=== PATIENT | female | born 1995 | race Caucasian/White ===

== ENCOUNTER 2019-01-09 09:21 | Emergency (ER) | payer OTHER ==
[~2019-01-09] VITALS: Ht 172.7 cm; Wt 68.9 kg
--- NOTE | 2019-01-09 09:31 | NUR ---
PT TO BED 1 WITH STEADY GAIT
[2019-01-09 09:34] VITALS: BP 126/69
--- NOTE | 2019-01-09 09:49 | NUR ---
PT IS ALERT AND ORIENTED X 4 AND PRESENTS TO THE ED WITH C/O HEADACHE X 2 DAYS AND WAS REFEERED FROM URGENT CARE FOR FURTHER EVALUATION OF HGB 5.9. PT DESCRIBES PAIN FOM HEADACHE PRESSURE AND RATES IT AT 7/10 AT THIS TIME. PT STATES THAT SHE HAS HAD N/V X 1 DAY. BOWEL SOUNDS ACTIVE IN ALL 4 QUADRANTS, PT STATES LAST BOWEL MOVEMENT WAS 01/09/19. PT DENIES CP OR SOB. PT POSITIONED FOR COMFORT. ER MD TO SEE PT. MIGDALIA PMH: LUPUS. RX: PREDNISONE, PLAQUENIL
[2019-01-09 10:11] LABS: HEMATOCRIT 21.2 % (36-48); LYMPHOCYTES # (AUTO) 0.5 K/uL (2.5-16.5); MONOCYTES # (AUTO) 0.4 K/uL (0.8-1.0)
[2019-01-09 10:17] LABS: BASOPHILS % (AUTO) 0.2 % (0.0-2.0); LYMPHOCYTES % (AUTO) 11.1 % (20.5-51.1); MEAN CORPUSCULAR HEMOGLOBIN 25 pg (27-31); MEAN CORPUSCULAR HGB CONC 32 g/dL (33-37); MEAN CORPUSCULAR VOLUME 78.8 fL (80-94); MONOCYTES % (AUTO) 7.8 % (1.7-9.3); NEUTROPHILS # (AUTO) 3.9 K/uL (1.8-7.7); NEUTROPHILS % (AUTO) 80.9 % (42.2-75.2); PLATELET COUNT (AUTO) 537 K/uL (140-450); RED BLOOD CELL COUNT(AUTO) 2.69 MIL/uL (4.20-5.40); RED CELL DISTRIBUTION WIDTH 17.4 % (11.6-13.7); WHITE BLOOD COUNT (AUTO) 4.9 K/uL (4.8-10.8)
[2019-01-09 10:19] LABS: ANION GAP 13.4 (8-16); CARBON DIOXIDE 25.8 mmol/L (21-32); CREATININE 0.5 mg/dL (0.6-1.3); HEMOGLOBIN 6.7 g/dL (12.0-16.0); POTASSIUM 4.2 mmol/L (3.5-5.1)
[2019-01-09 10:26] LABS: ALBUMIN 3.8 g/dL (3.4-5.0); TOTAL BILIRUBIN 0.3 mg/dL (0.0-1.0)
--- NOTE | 2019-01-09 10:27 | NUR ---
PT HEMOGLOBIN WAS 6.7. EXPAINED TO PT ABOUT BLOOD TRANSFUSION AND BENEFITS FROM A BLOOD TRANSFUSION. PT STATES "I DONT WANT A BLOOD TRANSFUSION, MY MOM IS REALLY SCIENTOLOGY AND I DONT WANT TO MAKE HER UPSET. LAST TIME IT WAS LOWER AND THEY JUST GAVE ME MEDICINE. I DONT WANT A TRANSFUSION RIGHT NOW". DR LOO INFORMED OF PT WISHES. THALIA ENGLISH TO SEE PT.
--- NOTE | 2019-01-09 10:45 | NUR ---
Patient being evaluated by ER MD LOO at bedside.
[2019-01-09] MEDS ORDERED: ONDANSETRON 4 MG ODT PO ONE (11:00)
--- NOTE | 2019-01-09 11:13 | NUR ---
Patient discharged with v/s stable. Written and verbal after care instructions given and explained. Patient alert, oriented and verbalized understanding of instructions. Ambulatory with steady gait. All questions addressed prior to discharge. ID band removed. Patient advised to follow up with PMD. Rx of ZOFRAN, IRON, XANAX, AND TRAMADOL given. Patient educated on indication of medication including possible reaction and side effects. Opportunity to ask questions provided and answered.
[2019-01-09 11:15] VITALS: BP 126/69
== END 2019-01-09 11:13 | disposition home or self-care (01) ==
LOC: MED 09:21
DX: D64.9 Anemia, unspecified (principal); G47.00 Insomnia, unspecified; M32.9 Systemic lupus erythematosus, unspecified; Z86.79 Personal history of other diseases of the circulatory system
CPT/HCPCS: 36415; 80053; 85025; 99283; Q0162

== ENCOUNTER 2021-08-09 20:48 | Emergency (ER) | payer OTHER ==
[~2021-08-09] VITALS: Ht 172.7 cm; Wt 69.9 kg
[2021-08-09 21:07] VITALS: BP 129/85
[2021-08-09] MEDS ORDERED: NACL 0.9% 1,000 ML IV ONE (22:10)
[2021-08-09 22:19] LABS: BASOPHILS % (AUTO) 0.9 % (0.0-2.0); EOSINOPHILS % (AUTO) 0.7 % (0.0-4.0); HEMATOCRIT 34.1 % (36-48); HEMOGLOBIN 11.4 g/dL (12.0-16.0); LYMPHOCYTES # (AUTO) 1.2 K/uL (2.5-16.5); LYMPHOCYTES % (AUTO) 22.7 % (20.5-51.1); MEAN CORPUSCULAR HEMOGLOBIN 29 pg (27-31); MEAN CORPUSCULAR HGB CONC 33 g/dL (33-37); MEAN CORPUSCULAR VOLUME 87.3 fL (80-94); MONOCYTES # (AUTO) 0.6 K/uL (0.8-1.0); MONOCYTES % (AUTO) 11.8 % (1.7-9.3); NEUTROPHILS # (AUTO) 3.5 K/uL (1.8-7.7); NEUTROPHILS % (AUTO) 63.9 % (42.2-75.2); PLATELET COUNT (AUTO) 326 K/uL (140-450); RED BLOOD CELL COUNT(AUTO) 3.91 MIL/uL (4.20-5.40); RED CELL DISTRIBUTION WIDTH 13.6 % (11.6-13.7); WHITE BLOOD COUNT (AUTO) 5.5 K/uL (4.8-10.8)
[2021-08-09 22:28] LABS: ANION GAP 9.3 (8-16); CARBON DIOXIDE 27.5 mmol/L (21-32); CREATININE 0.5 mg/dL (0.6-1.3); POTASSIUM 3.8 mmol/L (3.5-5.1)
[2021-08-10 00:20] VITALS: BP 119/94
== END 2021-08-10 00:20 | disposition home or self-care (01) ==
LOC: MED 20:48
DX: R04.0 Epistaxis (principal); Z98.890 Other specified postprocedural states
CPT/HCPCS: 36415; 80048; 85025; 99283